=== PATIENT | male | born 1970 | race Caucasian/White ===

== ENCOUNTER 2018-11-02 14:00 | Emergency (ER) | payer BC ==
[2018-11-02] MEDS ORDERED: PHENYLEPHRINE 0.5% NOSE 15ML NAS ONE (14:50)
[2018-11-02 15:24] LABS: Absolute Monocytes 0.6 K/uL (0.1-1.3); Absolute Neutrophil 3.7 K/uL (1.8-8.0); Basophils % 1.3 % (0-1.3); Eosinophils % 7.8 % (0-4.4); Hematocrit 41.1 % (39.6-49.0); Lymphocytes % 28.3 % (15.3-44.8); MCH 34.4 pg (27.0-35.0); MCV 97.7 fL (80-100); MPV 9.5 fL (7.6-11.3); Monocytes % 8.7 % (3.3-12.3); RBC Red Blood Cell Count 4.21 M/uL (4.33-5.43)
[2018-11-02 15:30] LABS: Protime INR 0.85
[2018-11-02 15:40] LABS: Albumin 3.6 g/dL (3.4-5.0); Bilirubin Total 0.3 mg/dL (0.2-1.0); Potassium 3.7 mmol/L (3.5-5.1); Protein, Total 6.7 g/dL (6.4-8.2)
--- NOTE | 2018-11-02 17:07 | ER ---
Nurse's Notes [facility] Name: Richmond Soliz Age: 48 yrs Sex: Male : 1970 Arrival Date: 11/02/2018 Time: 14:12 Bed 14 Private MD: Diagnosis: Epistaxis Presentation: 11/02 14:12 Presenting complaint: Patient states: I have been having nosebleeds off and on since kr2 Tuesday morning, I haven't hit my nose or anything I just get them sometimes. Denies being on any blood thinners. Transition of care: patient was not received from another setting of care. Onset of symptoms was October 30, 2018. Risk Assessment: Do you want to hurt yourself or someone else? Patient reports no desire to harm self or others. Initial Sepsis Screen: Does the patient meet any 2 criteria? No. Patient's initial sepsis screen is negative. Does the patient have a suspected source of infection? No. Patient's initial sepsis screen is negative. Care prior to arrival: None. 14:12 Method Of Arrival: Ambulatory kr2 14:12 Acuity: DINH 4 kr2 Triage Assessment: 14:14 General: Appears in no apparent distress. Behavior is calm, cooperative. EENT: Nares kr2 with bleeding noted. Respiratory: Airway is patent Respiratory effort is even, unlabored, Respiratory pattern is regular. Historical: - Allergies: 14:14 No Known Allergies; kr2 - Home Meds: 14:14 None [Active]; kr2 - PMHx: 14:14 None; kr2 - PSHx: 14:14 None; kr2 - Immunization history:: Adult Immunizations not up to date. - Social history:: Smoking status: Patient uses tobacco products, smokes one pack cigarettes per day. - Ebola Screening: : No symptoms or risks identified at this time. Screenin:38 Abuse screen: Denies threats or abuse. Denies injuries from another. Nutritional ch screening: No deficits noted. Tuberculosis screening: No symptoms or risk factors identified. Fall Risk None identified. Assessment: 14:38 Pain: Denies pain. Neuro: Level of Consciousness is awake, alert, obeys commands, ch Oriented to person, place, time. Cardiovascular: Denies chest pain, Heart tones S1 S2 present. Respiratory: Airway is patent Trachea midline Respiratory effort is even, unlabored, Breath sounds are clear bilaterally. EENT: Nares with bleeding noted. Derm: Skin is pink, warm \T\ dry. 15:17 Reassessment: Patient appears in no apparent distress at this time. Patient and/or ch family updated on plan of care and expected duration. Pain level reassessed. Patient is alert, oriented x 3, equal unlabored respirations, skin warm/dry/pink. pt reports he is still swallowing blood clots, states the nose clamp hurts. 15:45 Reassessment: Patient appears in no apparent distress at this time. Jayy in room, removed nasal packing. clamp replaced. 17:00 Reassessment: Patient appears in no apparent distress at this time. No changes from previously documented assessment. Patient and/or family updated on plan of care and expected duration. Pain level reassessed. Patient is alert, oriented x 3, equal unlabored respirations, skin warm/dry/pink. Jayy in room discussing results and plan of care with pt. 17:15 Reassessment: Patient appears in no apparent distress at this time. Patient and/or ch family updated on plan of care and expected duration. Pain level reassessed. Patient is alert, oriented x 3, equal unlabored respirations, skin warm/dry/pink. bleeding has stopped Patient states feeling better. Patient states symptoms have improved. Vital Signs: 14:14 BP 153 / 103; Pulse 86; Resp 20; Temp 98.4; Pulse Ox 100% ; kr2 14:38 BP 147 / 102; Pulse 67; Resp 15; Temp 98.4; Pulse Ox 99% on R/A; Pain 0/10; ch 15:17 BP 146 / 95; Pulse 68; Resp 15; Temp 98.7; Pulse Ox 99% on R/A; Pain 0/10; ch 17:00 BP 139 / 103; Pulse 56; Resp 18; Temp 98; Pulse Ox 99% on R/A; Pain 0/10; ch ED Course: 14:12 Patient arrived in ED. as 14:14 Triage completed. kr2 14:15 Arm band placed on right wrist. kr2 14:35 Jayy Newby PA is PHCP. jm 14:35 Teddy Mercado MD is Attending Physician. [facility] 14:38 Viktoria Kurtz RN is Primary Nurse. 14:38 No apparent distress. Resting quietly. ch 14:38 Patient has correct armband on for positive identification. Placed in gown. Bed in low ch position. Call light in reach. Side rails up X 1. Pulse ox on. NIBP on. 14:38 No provider procedures requiring assistance completed. 14:50 Inserted saline lock: 20 gauge in right forearm, using aseptic technique. Blood ch collected. 14:50 IV discontinued, intact, bleeding controlled, No redness/swelling at site. Pressure ch dressing applied. Administered Medications: 14:47 Drug: Phenylephrine 0.5 % 2 sprays {Note: given to Jayy, administered by Jayy.} Route: ch Intranasal; Site: both nares; Outcome: 17:07 Discharge ordered by . joey 17:15 Discharged to home ambulatory, with family. 17:15 Condition: stable 17:15 Discharge instructions given to patient, family, Instructed on discharge instructions, follow up and referral plans. Demonstrated understanding of instructions, follow-up care. 17:16 Patient left the ED. Signatures: Viktoria Kurtz, RN RN Jayy Noriega PA PA jmm Martinez, Amelia as Reaves, Karey RN RN kr2
--- NOTE | 2018-11-02 17:07 | EDPHYS ---
Physician Documentation [facility] Name: Richmond Soliz Age: 48 yrs Sex: Male : 1970 Arrival Date: 11/02/2018 Time: 14:12 Bed 14 Private MD: ED Physician Teddy Mercado HPI: 11/02 14:48 This 48 yrs old Male presents to ER via Ambulatory with complaints of Nose jmm Bleed. 14:48 The patient presents with a nose bleed, that is apparently anterior, from the left jmm nare. Onset: The symptoms/episode began/occurred gradually, 3 day(s) ago. Modifying factors: The symptoms are alleviated by nothing. the symptoms are aggravated by nothing. Associated signs and symptoms: Loss of consciousness: the patient experienced no loss of consciousness, Pertinent negatives: blurred vision, chest pain, lightheadedness, nausea. Historical: - Allergies: 14:14 No Known Allergies; kr2 - Home Meds: 14:14 None [Active]; kr2 - PMHx: 14:14 None; kr2 - PSHx: 14:14 None; kr2 - Immunization history:: Adult Immunizations not up to date. - Social history:: Smoking status: Patient uses tobacco products, smokes one pack cigarettes per day. - Ebola Screening: : No symptoms or risks identified at this time. ROS: 14:48 Constitutional: Negative for fever, chills, and weight loss, Eyes: Negative for injury, jmm pain, redness, and discharge. 14:48 Cardiovascular: Negative for chest pain, palpitations, and edema, Respiratory: Negative for shortness of breath, cough, wheezing, and pleuritic chest pain, Neuro: Negative for headache, weakness, numbness, tingling, and seizure. 14:48 ENT: Positive for nose bleed. 14:48 All other systems are negative. Exam: 14:48 Constitutional: This is a well developed, well nourished patient who is awake, alert, jmm and in no acute distress. Head/Face: atraumatic. Eyes: EOMI, no conjunctival erythema appreciated 14:48 Neck: Trachea midline, Supple Chest/axilla: Normal chest wall appearance and motion. Cardiovascular: Regular rate and rhythm. No edema appreciated Respiratory: Normal respirations, no respiratory distress appreciated Abdomen/GI: Non distended, soft Skin: General appearance color normal MS/ Extremity: Moves all extremities, no obvious deformities appreciated, no edema noted to the lower extremities Neuro: Awake and alert, normal gait Psych: Behavior is normal, Mood is normal, Patient is cooperative and pleasant 14:48 ENT: Posterior pharynx: blood noted in the posterior pharynx. 14:48 ENT: clotted blood noted to both nostrils. Vital Signs: 14:14 BP 153 / 103; Pulse 86; Resp 20; Temp 98.4; Pulse Ox 100% ; kr2 14:38 BP 147 / 102; Pulse 67; Resp 15; Temp 98.4; Pulse Ox 99% on R/A; Pain 0/10; ch 15:17 BP 146 / 95; Pulse 68; Resp 15; Temp 98.7; Pulse Ox 99% on R/A; Pain 0/10; ch 17:00 BP 139 / 103; Pulse 56; Resp 18; Temp 98; Pulse Ox 99% on R/A; Pain 0/10; ch MDM: 14:48 Patient medically screened. [facility] 17:06 Data reviewed: vital signs, nurses notes. Counseling: I had a detailed discussion with [facility] the patient and/or guardian regarding: the historical points, exam findings, and any diagnostic results supporting the discharge/admit diagnosis, the need for outpatient follow up, to return to the emergency department if symptoms worsen or persist or if there are any questions or concerns that arise at home. 17:06 ED course: Bleeding has resolved in the ED. Patient advised to follow up with ENT in 1 [facility] to 2 days for reevluation. Patient otherwise advised not to pick or blow nose and return to the ED if he is unable to control bleeding at home. H/H normal, VS normal. . 12 14:37 Order name: CBC with Diff; Complete Time: 15:37 [facility] 11/02 14:37 Order name: CMP; Complete Time: 15:44 [facility] 11/02 14:37 Order name: PT-INR; Complete Time: 15:37 [facility] 11/02 14:37 Order name: Saline Lock; Complete Time: 16:07 [facility] Administered Medications: 14:47 Drug: Phenylephrine 0.5 % 2 sprays {Note: given to Jayy, administered by Jyay.} Route: ch Intranasal; Site: both nares; Disposition: 18:08 Co-signature as Attending Physician, Teddy Mercado MD. rn Disposition: 11/02/18 17:07 Discharged to Home. Impression: Epistaxis. - Condition is Stable. - Discharge Instructions: Nosebleed, Adult. - Medication Reconciliation Form, Thank You Letter, Antibiotic Education, Prescription Opioid Use form. - Follow up: Private Physician; When: 2 - 3 days; Reason: Recheck today's complaints, Continuance of care, Re-evaluation by your physician. Signatures: Dispatcher [employer] EDMS Viktoria Kurtz RN RN Jayy Noriega PA PA Teddy Connelly MD MD rn Reaves, Karey, RN RN kr2 Corrections: (The following items were deleted from the chart) 17:16 17:07 11/02/2018 17:07 Discharged to Home. Impression: Epistaxis. Condition is Stable. ch Forms are Medication Reconciliation Form, Thank You Letter, Antibiotic Education, Prescription Opioid Use. Follow up: Private Physician; When: 2 - 3 days; Reason: Recheck today's complaints, Continuance of care, Re-evaluation by your physician. [facility]
== END 2018-11-02 17:16 | disposition home or self-care (01) ==
LOC: ER 14:00
DX: R04.0 Epistaxis (principal); F17.210 Nicotine dependence, cigarettes, uncomplicated
CPT/HCPCS: 36415; 80053; 85025; 85610; 99284

== ENCOUNTER 2018-11-03 00:04 | Emergency (ER) | payer BC ==
[2018-11-03] MEDS ORDERED: PHENYLEPHRINE 0.5% NOSE 15ML NAS ONE (00:25)
[2018-11-03] MEDS ORDERED: SILVER NITRATE 1 APPL TOP ONE (00:27)
--- NOTE | 2018-11-03 00:47 | EDPHYS ---
Physician Documentation [facility] Name: Richmond Soliz Age: 48 yrs Sex: Male : 1970 Arrival Date: 11/03/2018 Time: 00:06 Bed 15 Private MD: ED Physician Trey Tinoco HPI: 11/03 00:41 This 48 yrs old Male presents to ER via Ambulatory with complaints of Nose gs Bleed. 00:41 The patient presents with a nose bleed, that is apparently anterior. Onset: The gs symptoms/episode began/occurred 1 week(s) ago, intermittent. Modifying factors: The symptoms are alleviated by nothing. the symptoms are aggravated by nothing. Associated signs and symptoms: Pertinent negatives: blurred vision, chest pain. Severity of symptoms: At their worst the symptoms were moderate in the emergency department the symptoms have improved mildly. The patient has experienced similar episodes in the past, a few times. The patient has been recently seen at the [facility] Emergency Department, today, for similar complaints. Historical: - Allergies: 00:23 No Known Allergies; jb4 - Home Meds: 00:23 None [Active]; jb4 - PMHx: 00:23 None; jb4 - PSHx: 00:23 None; jb4 - Immunization history:: Adult Immunizations not up to date, Last tetanus immunization: not indicated for visit today. Flu vaccine is not up to date. - Social history:: Smoking status: Patient uses tobacco products, smokes one pack cigarettes per day. Patient uses alcohol, "6 shots/day". - Ebola Screening: : No symptoms or risks identified at this time. ROS: 00:41 All other systems are negative. gs Exam: 00:41 Head/Face: Normocephalic, atraumatic. Eyes: Pupils equal round and reactive to light, gs extra-ocular motions intact. Lids and lashes normal. Conjunctiva and sclera are non-icteric and not injected. Cornea within normal limits. Periorbital areas with no swelling, redness, or edema. Neck: Trachea midline, no thyromegaly or masses palpated, and no cervical lymphadenopathy. Supple, full range of motion without nuchal rigidity, or vertebral point tenderness. No Meningismus. Cardiovascular: Regular rate and rhythm with a normal S1 and S2. No gallops, murmurs, or rubs. Normal PMI, no JVD. No pulse deficits. Respiratory: Lungs have equal breath sounds bilaterally, clear to auscultation and percussion. No rales, rhonchi or wheezes noted. No increased work of breathing, no retractions or nasal flaring. Abdomen/GI: Soft, non-tender, with normal bowel sounds. No distension or tympany. No guarding or rebound. No evidence of tenderness throughout. Back: No spinal tenderness. No costovertebral tenderness. Full range of motion. Skin: Warm, dry with normal turgor. Normal color with no rashes, no lesions, and no evidence of cellulitis. Neuro: Awake and alert, GCS 15, oriented to person, place, time, and situation. Cranial nerves II-XII grossly intact. Motor strength 5/5 in all extremities. Sensory grossly intact. Cerebellar exam normal. Normal gait. 00:41 Constitutional: The patient appears alert, awake. 00:41 ENT: Nose: bleeding, is seen from the left nare, and is moderate, no septal hematoma is appreciated. Vital Signs: 00:23 BP 156 / 106; Pulse 83; Resp 18; Temp 98.2(O); Pulse Ox 100% on R/A; Weight 77.11 kg jb4 (R); Height 5 ft. 4 in. (162.56 cm) (R); Pain 0/10; 01:13 BP 141 / 99; Pulse 68; Resp 16; Pulse Ox 98% on R/A; jb4 00:23 Body Mass Index 29.18 (77.11 kg, 162.56 cm) jb4 Procedures: 00:41 Epistaxis treatment: A small amount of bleeding noted from left nare. Treated using cauterization, silver nitrate, direct pressure. MDM: 00:19 Patient medically screened. 00:41 Differential diagnosis: epistaxis r/t trauma, spontaneous epistaxis. Data reviewed: vital signs, nurses notes. Response to treatment: the patient's symptoms have markedly improved after treatment, the patient's symptoms have resolved after treatment, and as a result, I will discharge patient. 00:45 Counseling: I had a detailed discussion with the patient and/or guardian regarding: the historical points, exam findings, and any diagnostic results supporting the discharge/admit diagnosis, the presence of at least one elevated blood pressure reading (>120/80) during this emergency department visit. Special discussion: I have referred the patient to see his PCP for further evaluation of high blood pressure. Administered Medications: 01:05 Drug: Silver Nitrate Applicators 2 application {Note: applied by ER physician, applied jb4 to nose bleed.} Route: Topical; Site: wound; 01:16 Follow up: Response: No adverse reaction jb4 Disposition: 11/03/18 00:46 Discharged to Home. Impression: Epistaxis. - Condition is Stable. - Discharge Instructions: Nosebleed, Adult. - Medication Reconciliation Form, Thank You Letter, Antibiotic Education, Prescription Opioid Use form. - Follow up: Kate Arias MD; When: 2 - 3 days; Reason: Re-evaluation by your physician. Signatures: Juan Francisco Dowd RN RN jb4 Trey Tinoco MD MD gs Corrections: (The following items were deleted from the chart) 01:17 00:46 11/03/2018 00:46 Discharged to Home. Impression: Epistaxis. Condition is Stable. jb4 Forms are Medication Reconciliation Form, Thank You Letter, Antibiotic Education, Prescription Opioid Use. Follow up: Kate rAias; When: 2 - 3 days; Reason: Re-evaluation by your physician. gs
--- NOTE | 2018-11-03 00:47 | ER ---
Nurse's Notes [facility] Name: Richmond Soliz Age: 48 yrs Sex: Male : 1970 Arrival Date: 11/03/2018 Time: 00:06 Bed 15 Private MD: Diagnosis: Epistaxis Presentation: 11/03 00:21 Presenting complaint: Patient states: I was here earlier today for a nose bleed. It jb4 began bleeding again around 1930 and hasn't stopped. Transition of care: patient was not received from another setting of care. Onset of symptoms was November 03, 2018. Risk Assessment: Do you want to hurt yourself or someone else? Patient reports no desire to harm self or others. Initial Sepsis Screen: Does the patient meet any 2 criteria? No. Patient's initial sepsis screen is negative. Does the patient have a suspected source of infection? No. Patient's initial sepsis screen is negative. Care prior to arrival: None. 00:21 Method Of Arrival: Ambulatory jb4 00:21 Acuity: DINH 3 jb4 Triage Assessment: 00:23 General: Appears in no apparent distress. comfortable, Behavior is calm, cooperative, jb4 appropriate for age. Pain: Denies pain. EENT: Nares with bleeding noted. Neuro: Level of Consciousness is awake, alert, obeys commands, Oriented to person, place, time, situation. Cardiovascular: Patient's skin is warm and dry. Respiratory: Airway is patent Respiratory effort is even, unlabored, Respiratory pattern is regular, symmetrical. GI: No signs and/or symptoms were reported involving the gastrointestinal system. : No signs and/or symptoms were reported regarding the genitourinary system. Derm: Skin is intact, Skin is pink, warm \\T\\ dry. Musculoskeletal: Circulation, motion, and sensation intact. Historical: - Allergies: 00:23 No Known Allergies; jb4 - Home Meds: 00:23 None [Active]; jb4 - PMHx: 00:23 None; jb4 - PSHx: 00:23 None; jb4 - Immunization history:: Adult Immunizations not up to date, Last tetanus immunization: not indicated for visit today. Flu vaccine is not up to date. - Social history:: Smoking status: Patient uses tobacco products, smokes one pack cigarettes per day. Patient uses alcohol, "6 shots/day". - Ebola Screening: : No symptoms or risks identified at this time. Screenin:26 Abuse screen: Denies threats or abuse. Nutritional screening: No deficits noted. jb4 Tuberculosis screening: No symptoms or risk factors identified. Fall Risk None identified. Assessment: 00:26 General: see triage assessment.. jb4 01:13 Reassessment: Patient appears in no apparent distress at this time. Patient and/or jb4 family updated on plan of care and expected duration. Pain level reassessed. Patient is alert, oriented x 3, equal unlabored respirations, skin warm/dry/pink. Patient states symptoms have improved. Vital Signs: 00:23 BP 156 / 106; Pulse 83; Resp 18; Temp 98.2(O); Pulse Ox 100% on R/A; Weight 77.11 kg jb4 (R); Height 5 ft. 4 in. (162.56 cm) (R); Pain 0/10; 01:13 BP 141 / 99; Pulse 68; Resp 16; Pulse Ox 98% on R/A; jb4 00:23 Body Mass Index 29.18 (77.11 kg, 162.56 cm) jb4 ED Course: 00:06 Patient arrived in ED. es 00:13 Trey Tinoco MD is Attending Physician. gs 00:21 Juan Francisco Dowd, RN is Primary Nurse. jb4 00:22 Triage completed. jb4 00:23 Arm band placed on left wrist. jb4 00:26 Patient has correct armband on for positive identification. Bed in low position. Call jb4 light in reach. Side rails up X 1. Pulse ox on. NIBP on. 00:45 Kate Arias MD is Referral Physician. 01:13 Assist provider with nosebleed control using simple cauterization, Bleeding from both jb4 nares. Set up for procedure. Performed by Trey Tinoco MD Bleeding stopped. Patient tolerated well. Patient did not have IV access during this emergency room visit. Administered Medications: 01:05 Drug: Silver Nitrate Applicators 2 application {Note: applied by ER physician, applied jb4 to nose bleed.} Route: Topical; Site: wound; 01:16 Follow up: Response: No adverse reaction jb4 Outcome: 00:46 Discharge ordered by . 01:13 Discharged to home ambulatory. jb4 01:13 Condition: stable 01:13 Discharge instructions given to patient, Instructed on discharge instructions, follow up and referral plans. Demonstrated understanding of instructions, follow-up care. 01:17 Patient left the ED. jb4 Signatures: Kayla Garcia James, RN RN jb4 Trey Tinoco MD MD
== END 2018-11-03 01:17 | disposition home or self-care (01) ==
LOC: ER 00:04
PROC: 093K7ZZ Control Bleeding in Nasal Mucosa and Soft Tissue, Via Natural or Artificial Opening (ICD-10-PCS; principal; 2018-11-03)
DX: R04.0 Epistaxis (principal); F17.210 Nicotine dependence, cigarettes, uncomplicated
CPT/HCPCS: 30901; 99283